=== PATIENT | female | born 1985 | race Caucasian/White ===

== ENCOUNTER → 2016-09-21 | Day surgery (SDC) | payer OTHER ==
[~2016-09-21] MED LIST: ACETAMINOPHEN 1000 MG/100 ML VIAL IV ONE; ACETAMINOPHEN/HYDROcodone 325 MG/5 MG TAB ONE; CALG500 PO; DENO120P SQ; EPINEPHrine HCL (1:1000) 30 MG/30 ML VIAL ONE; LACTATED RINGER'S 1000 ML INJ 1,000 ML ONE; LIDOCAINE 1%/EPINEPHrine 1:100,000 SOLN 30 ML VIAL ONE; LIDOCAINE HCL 1% 50 ML VIAL ONE; LORA-392 PO; MIDAZOLAM HCL 2 MG/2 ML VIAL ONE; NEOMYCIN/POLYMYXIN/BACITRACIN OINT 15 GM TUBE ONE; ONDANSETRON HCL 4 MG/2 ML VIAL IV PUSH ONE; OXYC1TAB63 PO; PROPOFOL 100 MG/10 ML INJ IV ONE; TAMO20TA6 PO; VITA100018 PO; ceFAZolin INJ 1,000 MG VIAL ONE
--- NOTE | 2016-09-21 10:08 | TN ---
cc: ARYA FONG M.D. DATE OF SURGERY: 09/21/2016 PREOPERATIVE DIAGNOSIS Lipodystrophy of bilateral thighs. POSTOPERATIVE DIAGNOSIS Lipodystrophy of bilateral thighs. PROCEDURE Bilateral thigh SlimLipo. Total I's and O's: 3500 in, total out 5 liters. Total energy utilizing 20 20 SlimLipo is 60,000 joules, 30,000 per thigh. SURGEON Arya Fong MD ANESTHESIA LMA general. ESTIMATED BLOOD LOSS Minimal. ANESTHESIA LMA general. COMPLICATIONS None. DETAILS OF PROCEDURE She was properly consented, marked and properly anesthetized. The skin was sterilized with Betadine solution. Utilizing a Cheers In draping system, sterile draping was applied. Tumescent fluid was done throughout the circumference as the patient was turned [id number] and frogged in order to address the full circumference of the thighs. Delivery of 30,000 joules per thigh [address] after that with a 4.5 mm cannula. Several of the puncture wounds were done utilizing a 15 blade and closed utilizing 5-0 chromic suture and Steri-Strips. The contralateral side was approached exactly in the same manner. A good contour was properly achieved. Good viability of the tissue was noted at the end of the case. The patient was awakened and extubated in the operating room and transferred back to the post-anesthesia care unit in stable condition. No complications were appreciated. The patient tolerated the procedure fairly well. MD SYLVIA Camilo/TREVOR /9:47 AM /9:56 AM
== END | disposition home or self-care (01) ==
LOC: ESDC 06:17
PROVIDERS: ATTEND Plastic Surgery
DX: Z41.1 Encounter for cosmetic surgery (principal)
CPT/HCPCS: 00400; 15879; J0131; J0171; J0690; J2250; J2405; J3010; J7120